=== PATIENT | male | born 1950 | race Caucasian/White ===

== ENCOUNTER → 2017-03-09 | Outpatient (CLI) | payer MEDICARE, OTHER ==
[2017-03-09 13:54] LABS: ALT 41 U/L (21-72); AST 22 U/L (17-59); Albumin 4.2 g/dL (3.5-5.0); Alkaline Phosphatase 61 U/L (38-126); Anion Gap 9 mmol/L; Blood Urea Nitrogen 17 mg/dL (9-20); Calcium 9.9 mg/dL (8.4-10.2); Carbon Dioxide 28 mmol/L (22-30); Chloride 105 mmol/L (98-107); Glucose 83 mg/dL (74-99); Potassium 4.4 mmol/L (3.5-5.1); Sodium 142 mmol/L (137-145); Total Bilirubin 0.4 mg/dL (0.2-1.3); Total Protein 6.9 g/dL (6.3-8.2)
[2017-03-09 13:56] LABS: Basophils # (A) 0.1 k/uL (0-0.2); Basophils % (A) 1 %; Eosinophils # (A) 0.3 k/uL (0-0.7); Eosinophils % (A) 4 %; HGB 16.1 gm/dL (13.0-17.5); Lymphocytes % (A) 28 %; MCH 30.4 pg (25.0-35.0); MCHC 34.3 g/dL (31.0-37.0); MCV 88.7 fL (80.0-100.0); Mean Platelet Volume 6.9; Monocytes # (A) 0.5 k/uL (0-1.0); Monocytes % (A) 7 %; Neutrophils % (A) 58 %; Platelet Count 174 k/uL (150-450); RDW 12.9 % (11.5-15.5); WBC 6.9 k/uL (3.8-10.6)
[2017-03-09 14:31] LABS: Prostate Specific Antigen <0.10 ng/mL (0.00-4.00)
== END | disposition home or self-care (01) ==
LOC: LABWHC1 12:24
PROVIDERS: ATTEND Internal Medicine
DX: C61 Malignant neoplasm of prostate (principal)
CPT/HCPCS: 36415; 80053; 84153; 84403; 85025

== ENCOUNTER → 2017-09-13 | Outpatient (CLI) | payer MEDICARE, OTHER ==
[2017-09-13 12:21] LABS: ALT 29 U/L (21-72); AST 20 U/L (17-59); Albumin 4.2 g/dL (3.5-5.0); Alkaline Phosphatase 53 U/L (38-126); Anion Gap 7 mmol/L; Blood Urea Nitrogen 20 mg/dL (9-20); Calcium 9.6 mg/dL (8.4-10.2); Carbon Dioxide 24 mmol/L (22-30); Chloride 109 mmol/L (98-107); Glucose 102 mg/dL (74-99); Sodium 140 mmol/L (137-145); Total Bilirubin 0.7 mg/dL (0.2-1.3); Total Protein 6.7 g/dL (6.3-8.2)
[2017-09-13 12:29] LABS: Basophils % (A) 1 %; Eosinophils # (A) 0.3 k/uL (0-0.7); Eosinophils % (A) 3 %; HCT 45.2 % (39.0-53.0); HGB 15.5 gm/dL (13.0-17.5); Lymphocytes # (A) 1.9 k/uL (1.0-4.8); Lymphocytes % (A) 26 %; MCH 30.2 pg (25.0-35.0); MCHC 34.3 g/dL (31.0-37.0); Mean Platelet Volume 6.8; Monocytes # (A) 0.4 k/uL (0-1.0); Monocytes % (A) 6 %; Neutrophils # (A) 4.7 k/uL (1.3-7.7); Neutrophils % (A) 63 %; Platelet Count 154 k/uL (150-450); RBC 5.14 m/uL (4.30-5.90); RDW 13.9 % (11.5-15.5); WBC 7.4 k/uL (3.8-10.6)
[2017-09-13 12:50] LABS: Prostate Specific Antigen <0.10 ng/mL (0.00-4.00)
== END | disposition home or self-care (01) ==
LOC: LABWHC1 11:30
PROVIDERS: ATTEND Internal Medicine
DX: C61 Malignant neoplasm of prostate (principal)
CPT/HCPCS: 36415; 80053; 84153; 85025

== ENCOUNTER → 2017-12-14 | Outpatient (CLI) | payer MEDICARE, OTHER ==
[2017-12-14 14:25] LABS: Basophils % (A) 0 %; Eosinophils # (A) 0.1 k/uL (0-0.7); Eosinophils % (A) 1 %; HCT 44.7 % (39.0-53.0); HGB 15.2 gm/dL (13.0-17.5); Lymphocytes % (A) 18 %; MCH 30.1 pg (25.0-35.0); MCHC 33.9 g/dL (31.0-37.0); MCV 88.7 fL (80.0-100.0); Mean Platelet Volume 7.3; Monocytes # (A) 0.6 k/uL (0-1.0); Monocytes % (A) 6 %; Neutrophils % (A) 73 %; Platelet Count 172 k/uL (150-450); RBC 5.04 m/uL (4.30-5.90); RDW 13.3 % (11.5-15.5); WBC 10.9 k/uL (3.8-10.6)
[2017-12-14 19:05] LABS: Albumin 4.5 g/dL (3.80-4.90); Albumin/Globulin Ratio 2.5 (1.20-2.10); Anion Gap 5.1 mmol/L (4.00-12.00); Calcium 9.4 mg/dL (8.7-10.3); Carbon Dioxide 26.9 mmol/L (21.6-31.8); Globulin 1.8 g/dL (2.1-3.7); Potassium 3.9 mmol/L (3.5-5.5); Total Bilirubin 0.8 mg/dL (0.2-1.2); Total Protein 6.3 g/dL (6.2-8.2)
[2017-12-14 19:15] LABS: Prostate Specific Antigen 0.1 ng/mL (0.0-4.5)
== END | disposition home or self-care (01) ==
LOC: LABWHC1 14:05
PROVIDERS: ATTEND Internal Medicine
DX: C61 Malignant neoplasm of prostate (principal)
CPT/HCPCS: 36415; 80053; 84153; 85025

== ENCOUNTER → 2018-03-29 | Outpatient (CLI) | payer MEDICARE, OTHER ==
[2018-03-29 13:37] LABS: Basophils % (A) 0 %; Eosinophils # (A) 0.2 k/uL (0-0.7); Eosinophils % (A) 2 %; HCT 47.6 % (39.0-53.0); HGB 15.8 gm/dL (13.0-17.5); Lymphocytes % (A) 19 %; MCH 29.8 pg (25.0-35.0); MCHC 33.2 g/dL (31.0-37.0); MCV 89.9 fL (80.0-100.0); Mean Platelet Volume 6.7; Monocytes # (A) 0.5 k/uL (0-1.0); Monocytes % (A) 5 %; Neutrophils # (A) 7.4 k/uL (1.3-7.7); Neutrophils % (A) 72 %; Platelet Count 199 k/uL (150-450); RDW 13.3 % (11.5-15.5); WBC 10.2 k/uL (3.8-10.6)
[2018-03-29 19:17] LABS: Albumin 4.5 g/dL (3.80-4.90); Albumin/Globulin Ratio 2.25 (1.60-3.17); Anion Gap 7.9 mmol/L (4.00-12.00); Carbon Dioxide 30.1 mmol/L (21.6-31.8); Potassium 4.3 mmol/L (3.5-5.5); Total Bilirubin 0.7 mg/dL (0.3-1.2); Total Protein 6.5 g/dL (6.2-8.2)
== END | disposition home or self-care (01) ==
LOC: LABWHC1 11:50
PROVIDERS: ATTEND Internal Medicine
DX: C61 Malignant neoplasm of prostate (principal)
CPT/HCPCS: 36415; 80053; 84153; 85025

== ENCOUNTER → 2018-06-25 | Outpatient (CLI) | payer MEDICARE, OTHER ==
[2018-06-25 10:46] LABS: Basophils % (A) 0 %; Eosinophils # (A) 0.3 k/uL (0-0.7); Eosinophils % (A) 3 %; HCT 46.8 % (39.0-53.0); HGB 15.7 gm/dL (13.0-17.5); Lymphocytes # (A) 2.5 k/uL (1.0-4.8); Lymphocytes % (A) 30 %; MCH 29.5 pg (25.0-35.0); MCHC 33.4 g/dL (31.0-37.0); MCV 88.4 fL (80.0-100.0); Mean Platelet Volume 7.8; Monocytes # (A) 0.6 k/uL (0-1.0); Monocytes % (A) 7 %; Neutrophils # (A) 4.8 k/uL (1.3-7.7); Neutrophils % (A) 57 %; Platelet Count 182 k/uL (150-450); RDW 13.9 % (11.5-15.5); WBC 8.4 k/uL (3.8-10.6)
[2018-06-25 16:55] LABS: Albumin 4.4 g/dL (3.80-4.90); Albumin/Globulin Ratio 2.44 (1.60-3.17); Anion Gap 6.1 mmol/L (4.00-12.00); Calcium 9.3 mg/dL (8.7-10.3); Carbon Dioxide 25.9 mmol/L (21.6-31.8); Globulin 1.8 g/dL (1.6-3.3); Potassium 4.2 mmol/L (3.5-5.5); Total Bilirubin 0.7 mg/dL (0.2-1.2); Total Protein 6.2 g/dL (6.2-8.2)
== END | disposition home or self-care (01) ==
LOC: LABWHC1 10:21
PROVIDERS: ATTEND Internal Medicine
DX: C61 Malignant neoplasm of prostate (principal)
CPT/HCPCS: 36415; 80053; 84153; 85025

== ENCOUNTER → 2018-10-02 | Outpatient (CLI) | payer MEDICARE, OTHER | END | disposition home or self-care (01) | LOC: LABWHC1 12:17 | PROVIDERS: ATTEND Internal Medicine | DX: C61 Malignant neoplasm of prostate (principal) | CPT/HCPCS: 36415; 84153 ==

== ENCOUNTER → 2018-12-25 | Outpatient (CLI) | payer MEDICARE, OTHER ==
[2018-12-25 14:06] LABS: Basophils % (A) 1 %; Eosinophils # (A) 0.2 k/uL (0-0.7); Eosinophils % (A) 2 %; HCT 47.2 % (39.0-53.0); HGB 16.1 gm/dL (13.0-17.5); Lymphocytes # (A) 2.1 k/uL (1.0-4.8); Lymphocytes % (A) 26 %; MCHC 34.1 g/dL (31.0-37.0); Monocytes # (A) 0.5 k/uL (0-1.0); Monocytes % (A) 6 %; Neutrophils # (A) 5.2 k/uL (1.3-7.7); Neutrophils % (A) 63 %; Platelet Count 172 k/uL (150-450); RBC 5.36 m/uL (4.30-5.90); RDW 12.8 % (11.5-15.5); WBC 8.1 k/uL (3.8-10.6)
[2018-12-25 20:01] LABS: Albumin 4.6 g/dL (3.80-4.90); Albumin/Globulin Ratio 2.56 (1.60-3.17); Anion Gap 6.6 mmol/L (4.00-12.00); Calcium 9.2 mg/dL (8.7-10.3); Carbon Dioxide 26.4 mmol/L (21.6-31.8); Globulin 1.8 g/dL (1.6-3.3); Potassium 4.3 mmol/L (3.5-5.5); Total Bilirubin 0.6 mg/dL (0.3-1.2); Total Protein 6.4 g/dL (6.2-8.2)
== END | disposition home or self-care (01) ==
LOC: LABWHC1 13:29
PROVIDERS: ATTEND Internal Medicine
DX: C61 Malignant neoplasm of prostate (principal)
CPT/HCPCS: 36415; 80053; 84153; 85025

== ENCOUNTER → 2019-03-29 | Outpatient (CLI) | payer MEDICARE, OTHER | END | disposition home or self-care (01) | LOC: LABWHC1 14:36 | PROVIDERS: ATTEND Internal Medicine | DX: C61 Malignant neoplasm of prostate (principal) | CPT/HCPCS: 36415; 84153 ==

== ENCOUNTER → 2019-07-01 | Outpatient (CLI) | payer MEDICARE, OTHER | END | disposition home or self-care (01) | LOC: LABWHC1 10:59 | DX: C61 Malignant neoplasm of prostate (principal) | CPT/HCPCS: 36415; 84153 ==

== ENCOUNTER → 2019-12-05 | Outpatient (CLI) | payer MEDICARE, OTHER ==
[2019-12-05 15:37] LABS: Basophils % (A) 0 %; Eosinophils # (A) 0.2 k/uL (0-0.7); Eosinophils % (A) 2 %; HCT 45.9 % (39.0-53.0); HGB 15.1 gm/dL (13.0-17.5); Lymphocytes # (A) 2.2 k/uL (1.0-4.8); Lymphocytes % (A) 21 %; MCH 29.9 pg (25.0-35.0); MCHC 32.8 g/dL (31.0-37.0); MCV 91.3 fL (80.0-100.0); Mean Platelet Volume 7.7; Monocytes # (A) 0.7 k/uL (0-1.0); Monocytes % (A) 7 %; Neutrophils # (A) 7.4 k/uL (1.3-7.7); Neutrophils % (A) 69 %; Platelet Count 177 k/uL (150-450); RBC 5.03 m/uL (4.30-5.90); RDW 13.4 % (11.5-15.5); WBC 10.7 k/uL (3.8-10.6)
[2019-12-05 21:34] LABS: African American GFR (CKD) 99.2 (60.0-200.0); Albumin 4.3 g/dL (3.80-4.90); Albumin/Globulin Ratio 2.05 (1.60-3.17); Anion Gap 9.1 mmol/L (4.00-12.00); BUN/Creat Ratio 24.44 Ratio (12.00-20.00); Calcium 9.9 mg/dL (8.7-10.3); Carbon Dioxide 26.9 mmol/L (21.6-31.8); Globulin 2.1 g/dL (1.6-3.3); Non-African American GFR(CKD) 85.6 (60.0-200.0); Potassium 4.3 mmol/L (3.5-5.5); Total Bilirubin 0.7 mg/dL (0.2-1.2); Total Protein 6.4 g/dL (6.2-8.2)
[2019-12-05 21:56] LABS: Prostate Specific Antigen 0.2 ng/mL (0.0-6.5)
== END | disposition home or self-care (01) ==
LOC: LABWHC1 13:28
PROVIDERS: ATTEND Internal Medicine
DX: C61 Malignant neoplasm of prostate (principal)
CPT/HCPCS: 36415; 80053; 84153; 84403; 85025

== ENCOUNTER → 2020-02-24 | Outpatient (CLI) | payer MEDICARE, OTHER ==
[2020-02-24 13:32] LABS: Basophils % (A) 1 %; Eosinophils # (A) 0.2 k/uL (0-0.7); Eosinophils % (A) 3 %; HCT 44.4 % (39.0-53.0); Lymphocytes # (A) 1.9 k/uL (1.0-4.8); Lymphocytes % (A) 23 %; MCH 29.9 pg (25.0-35.0); MCHC 33.7 g/dL (31.0-37.0); MCV 88.8 fL (80.0-100.0); Mean Platelet Volume 7.4; Monocytes # (A) 0.6 k/uL (0-1.0); Monocytes % (A) 6 %; Neutrophils # (A) 5.6 k/uL (1.3-7.7); Neutrophils % (A) 66 %; Platelet Count 175 k/uL (150-450); RDW 12.7 % (11.5-15.5); WBC 8.5 k/uL (3.8-10.6)
[2020-02-24 20:01] LABS: African American GFR (CKD) 99.2 (60.0-200.0); Albumin 4.6 g/dL (3.80-4.90); Albumin/Globulin Ratio 2.3 (1.60-3.17); Anion Gap 7.6 mmol/L (4.00-12.00); BUN/Creat Ratio 23.33 Ratio (12.00-20.00); Calcium 9.5 mg/dL (8.7-10.3); Carbon Dioxide 26.4 mmol/L (21.6-31.8); Non-African American GFR(CKD) 85.6 (60.0-200.0); Potassium 3.9 mmol/L (3.5-5.5); Total Bilirubin 0.6 mg/dL (0.3-1.2); Total Protein 6.6 g/dL (6.2-8.2)
[2020-02-24 20:10] LABS: Prostate Specific Antigen 0.3 ng/mL (0.0-6.5)
== END | disposition home or self-care (01) ==
LOC: LABWHC1 11:46
PROVIDERS: ATTEND Internal Medicine
DX: C61 Malignant neoplasm of prostate (principal)
CPT/HCPCS: 36415; 80053; 84153; 84403; 85025

== ENCOUNTER → 2020-09-02 | Outpatient (CLI) | payer MEDICARE, OTHER ==
[2020-09-02 20:58] LABS: Prostate Specific Antigen 0.3 ng/mL (0.0-6.5)
== END | disposition home or self-care (01) ==
LOC: LABWHC1 12:37
PROVIDERS: ATTEND Physician Assistant
DX: R79.9 Abnormal finding of blood chemistry, unspecified (principal)
CPT/HCPCS: 36415; 84153; 84403

== ENCOUNTER → 2020-12-02 | Outpatient (CLI) | payer MEDICARE, OTHER | END | disposition home or self-care (01) | LOC: LABWHC1 12:02 | PROVIDERS: ATTEND Physician Assistant | DX: C61 Malignant neoplasm of prostate (principal) | CPT/HCPCS: 36415; 84153; 84403 ==

== ENCOUNTER → 2021-06-25 | Outpatient (CLI) | payer MEDICARE, OTHER ==
[2021-06-25 22:26] LABS: Basophils # (A) 0.04 X 10*3/uL (0.00-0.10); Basophils % (A) 0.4 %; Eosinophils # (A) 0.25 X 10*3/uL (0.04-0.35); Eosinophils % (A) 2.8 %; HCT 51.3 % (39.6-50.0); HGB 16.8 g/dL (13.0-17.0); Immature Grans, Automated 0.3 %; Lymphocytes # (A) 2.17 X 10*3/uL (0.90-5.00); Lymphocytes % (A) 24.1 %; MCH 29.6 pg (27.0-32.0); MCHC 32.7 g/dL (32.0-37.0); MCV 90.3 fL (80.0-97.0); Monocytes # (A) 0.74 X 10*3/uL (0.20-1.00); Monocytes % (A) 8.2 %; NRBC Per 100 WBC 0 /100 WBCS (0.0-0.0); Neutrophils # (A) 5.79 X 10*3/uL (1.80-7.70); Neutrophils % (A) 64.2 %; Platelet Count 177 X 10*3/uL (140-440); RBC 5.68 X 10*6/uL (4.40-5.60); RDW 13.3 % (11.5-14.5); WBC 9.02 X 10*3/uL (4.50-10.00)
[2021-06-25 22:46] LABS: Albumin 4.6 g/dL (3.8-4.9); Albumin/Globulin Ratio 1.64 (1.60-3.17); Anion Gap 11.3 mmol/L (10.00-18.00); BUN/Creat Ratio 22.06 Ratio (12.00-20.00); Blood Urea Nitrogen 23.6 mg/dL (9.0-27.0); Calcium 10.1 mg/dL (8.7-10.3); Carbon Dioxide 27.3 mmol/L (20.0-27.5); Globulin 2.8 g/dL (1.6-3.3); Potassium 4.5 mmol/L (3.5-5.5); Prostate Specific Antigen 6.7 ng/mL (0.00-6.50); Total Bilirubin 0.6 mg/dL (0.30-1.20); Total Protein 7.4 g/dL (6.2-8.2)
== END | disposition home or self-care (01) ==
LOC: LABWHC1 15:29
PROVIDERS: ATTEND Internal Medicine
DX: Z00.00 Encounter for general adult medical examination without abnormal findings (principal)
CPT/HCPCS: 36415; 80053; 84153; 84403; 85025

== ENCOUNTER 2022-07-26 14:16 | Emergency (ER) | payer MEDICARE, OTHER ==
[2022-07-26] MEDS ORDERED: SODIUM CHLORIDE 0.9% 1,000 ML IV ONE (15:06)
[2022-07-26] MEDS ORDERED: TAMSULOSIN 0.4 MG CAP.ER.24H PO STA (15:06)
[2022-07-26 15:47] LABS: Basophils % (A) 0 %; Eosinophils # (A) 0.1 k/uL (0-0.7); Eosinophils % (A) 1 %; HCT 41.7 % (39.0-53.0); HGB 14.5 gm/dL (13.0-17.5); Lymphocytes % (A) 22 %; MCH 29.9 pg (25.0-35.0); MCHC 34.7 g/dL (31.0-37.0); MCV 86.2 fL (80.0-100.0); Mean Platelet Volume 7.7; Monocytes # (A) 0.6 k/uL (0-1.0); Monocytes % (A) 7 %; Neutrophils % (A) 67 %; Platelet Count 163 k/uL (150-450); RBC 4.83 m/uL (4.30-5.90); RDW 13.5 % (11.5-15.5); WBC 8.9 k/uL (3.8-10.6)
[2022-07-26 15:49] LABS: Appearance,Urine Clear (Clear); Bilirubin,Urine Negative (Negative); Blood,Urine Large (Negative); Color,Urine Yellow; Glucose,Urine (UA) Negative (Negative); Ketones,Urine Negative (Negative); Leukocyte Esterase,Urine Trace (Negative); Nitrite,Urine Negative (Negative); Protein,Urine Trace (Negative); RBC,Urine 2 /hpf (0-5); Specific Gravity,Urine 1.019 (1.001-1.035); Urobilinogen,Urine <2.0 mg/dL (<2.0); WBC,Urine <1 /hpf (0-5)
--- NOTE | 2022-07-26 16:06 | CT ---
EXAMINATION TYPE: CT abdomen pelvis wo con DATE OF EXAM: 07/26/2022 COMPARISON: None HISTORY: c/o urinary retention CT DLP: 1148.4 mGycm Examination of the solid and hollow viscera is limited given the lack of contrast. FINDINGS: LUNG BASES: No evidence for nodule. No evidence for infiltrate. LIVER/GB: The gallbladder is unremarkable. No space-occupying hepatic lesion. PANCREAS: No pancreatic mass identified. No inflammatory process seen. SPLEEN: No evidence for splenomegaly. No intrasplenic lesions seen. ADRENALS: No adrenal nodules identified. No evidence for thickening. KIDNEYS: No evidence for renal mass. 3 mm calculus resides within the urinary bladder compatible with recently passed calculus. There is mild residual right-sided hydronephrosis. 2 mm nonobstructing veronica culus midpole right kidney. 1 mm nonobstructing calculus upper pole left kidney. 2 mm nonobstructing calculus mid pole left kidney. BOWEL: Appendix has a normal appearance. No evidence of bowel obstruction. No inflammatory process. Lymph nodes: No evidence for adenopathy greater than 1 cm. Abdominal aorta: Atheromatous changes seen. No evidence for aneurysm. Genital organs: Changes of previous prostatectomy. Other: No significant abnormality. IMPRESSION: 3 mm calculus resides within the urinary bladder compatible with recently passed calculus. There is m ild residual right-sided hydronephrosis.
[2022-07-26 16:15] LABS: ALT 20 U/L (4-49); AST 24 U/L (17-59); African American GFR (CKD) >90 (>60 ml/min/1.73 sqM); Albumin 4.3 g/dL (3.5-5.0); Alkaline Phosphatase 68 U/L (38-126); Anion Gap 12 mmol/L; Blood Urea Nitrogen 35 mg/dL (9-20); Calcium 9.9 mg/dL (8.4-10.2); Carbon Dioxide 22 mmol/L (22-30); Chloride 109 mmol/L (98-107); Glucose 89 mg/dL (74-99); Non-African American GFR(CKD) 82 (>60 ml/min/1.73 sqM); Potassium 4.2 mmol/L (3.5-5.1); Sodium 143 mmol/L (137-145); Total Bilirubin 0.9 mg/dL (0.2-1.3); Total Protein 7.1 g/dL (6.3-8.2)
--- NOTE | 2022-07-26 17:04 | ED ---
General Adult HPI - General Chief complaint: Urogenital Stated complaint: urinary retention Time Seen by Provider: 07/26/22 14:47 Source: patient, RN notes reviewed Mode of arrival: ambulatory Limitations: no limitations - History of Present Illness Initial comments: 71-year-old male with history of enlarged prostate presents to the emergency department with a chief complaint of urinary retention. Patient reports difficulty urinating that started approximately 2 days ago. He reports his last void was last night. He reports that he is still able to have a small double. He denies any fevers, chills pain, just nausea, vomiting. He does report accompanying right flank pain that radiates to the right abdomen. He does report he used to s self catheterize.. - Related Data Previous Rx's Medication Instructions Recorded Tamsulosin [Flomax] 0.4 mg PO DAILY #14 cap 07/26/22 Allergies Allergy/AdvReac Type Severity Reaction Status Date / Time No Known Allergies Allergy Verified 07/26/22 14:40 Review of Systems ROS Statement: Those systems with pertinent positive or pertinent negative responses have been documented in the HPI. ROS Other: All systems not noted in ROS Statement are negative. Past Medical History Past Medical History: Prostate Disorder History of Any Multi-Drug Resistant Organisms: None Reported Past Surgical History: Hernia Repair, Prostate Surgery Past Psychological History: No Psychological Hx Reported Smoking Status: Current some day smoker Past Alcohol Use History: None Reported Past Drug Use History: None Reported General Exam - General Exam Comments Initial Comments: General: Alert, in no acute distress Head: atraumatic normocephalic. Eyes PERRL, EOMI intact, mucous membranes moist Respiratory: Lungs clear to auscultation bilaterally Cardiovascular: heart rate regular rate and rhythm Abdominal: Soft without guarding or rebound Extremities: Normal inspection with full range of motion and normal capillary refill Neuroogic: alert and oriented 3, CN II-XII intact, able to ambulate with steady gait Skin: warm dry and intact with normal color Limitations: no limitations Course Vital Signs 07/26/22 07/26/22 14:37 17:18 Temperature 98.4 F 97.9 F Pulse Rate 80 76 Respiratory 20 16 Rate Blood Pressure 102/72 136/76 O2 Sat by Pulse 98 99 Oximetry Medical Decision Making - Medical Decision Making Was pt. sent in by a medical professional or institution (, PA, DEVICE SALES CONSULTANT, urgent care, hospital, or penitentiary...) When possible be specific @ -[No] Did you speak to anyone other than the patient for history (EMS, parent, family, police, friend...)? What history was obtained from this source @ -[No] Did you review nursing and triage notes (agree or disagree)? Why? @ -[I reviewed and agree with nursing and triage notes] Were old charts reviewed (outside hosp., previous admission, EMS record, old EKG, old radiological studies, urgent care reports/EKG's, penitentiary records)? Report findings @ -[No old charts were reviewed] Differential Diagnosis (chest pain, altered mental status, abdominal pain women, abdominal pain men, vaginal bleeding, weakness, fever, dyspnea, syncope, headache, dizziness, GI bleed, back pain, seizure, CVA, palpatations, mental health, musculoskeletal)? @ -[not applicable] EKG interpreted by me (3pts min.). @ -[As above] X-rays interpreted by me (1pt min.). @ -[None done] CT interpreted by me (1pt min.). @ -negative for any evidence of obstructing nephrolithiasis. There is mild right hydronephrosis with suspected recent passing of her nephrolithiasis. U/S interpreted by me (1pt. min.). @ -[None done] What testing was considered but not performed or refused? (CT, X-rays, U/S, labs)? Why? @ -[None] What meds were considered but not given or refused? Why? @ -[None] Did you discuss the management of the patient with other professionals (gurpreet gomez i.eCarlee Sy, PA, DEVICE SALES CONSULTANT, lab, RT, psych nurse, family welfare social work professor, animal hospital office supervisor, teacher, corporate trust officer, welfare case worker)? Give summary @ -[No] Was smoking cessation discussed for >3mins.? @ -[No] Was critical care preformed (if so, how long)? @ -[No] Were there social determinants of health that impacted care today? How? (Homelessness, low income, unemployed, alcoholism, drug addiction, transpo rtation, low edu. Level, literacy, decrease access to med. care, detention, rehab)? @ -[No] Was there de-escalation of care discussed even if they declined (Discuss DNR or withdrawal of care, Hospice)? DNR status @ -[No] What co-morbidities impacted this encounter? (DM, HTN, Smoking, COPD, CAD, Cancer, CVA, ARF, Chemo, Hep., AIDS, mental health diagnosis, sleep apnea, morbid obesity)? @ -[None] Was patient admitted / discharged? Hospital course, mention meds given and route, prescriptions, significant lab abnormalities, going to OR and other pertinent info. @ --Discharge. This is a 71-year-old male who presents the emergency department with urinary problem. Patient had a thorough history and physical exam performed on the ED. Heart rate regular rate and rhythm, lung laterally, abdomen soft and nontender. Patient had lab work and imaging performed which were essentially unremarkable.patient had a bladder scan which showed personally 200 mL of urine. Patient had lab work and imaging performed. He was given 1 L of IV fluids with symptomatic relief.he should was given a dose of Flomax on the ED. He was given a prescription for Flomax. I discussed the results in detail with the patient verbalized understanding and all questions were addr essed. Return precautions were discussed at length. Patient discharged in stable condition. Case discussed with Dr. Silas GRAVES who agrees with plan of care Undiagnosed new problem with uncertain prognosis? @ -[No] Drug Therapy requiring intensive monitoring for toxicity (Heparin, Nitro, Insulin, Cardizem)? @ -[No] Were any procedures done? @ -[No] Diagnosis/symptom? @ -Urinary Problem Acute, or Chronic, or Acute on Chronic? @ -Acute Uncomplicated (without systemic symptoms) or Complicated (systemic symptoms)? @ -Uncomplicated Side effects of treatment? @ -[No] Exacerbation, Progression, or Severe Exacerbation? @ -[No] Poses a threat to life or bodily function? How? (Chest pain, [place], [place], pneumonia, PE, COPD, DKA, ARF, appy, cholecystitis, CVA, Diverticulitis, Homicidal, Suicidal, threat to staff... and all critical care pts) @ -Low likelihood - Lab Data Result diagrams: 07/26/22 15:19 07/26/22 15:19 Lab Results 07/26/22 07/26/22 07/26/22 Range/Units 15:01 15:19 15:19 WBC 8.9 (3.8-10.6) k/uL RBC 4.83 (4.30-5.90) m/uL Hgb 14.5 (13.0-17.5) gm/dL Hct 41.7 (39.0-53.0) % MCV 86.2 (80.0-100.0) fL MCH 29.9 (25.0-35.0) pg MCHC 34.7 (31.0-37.0) g/dL RDW 13.5 (11.5-15.5) % Plt Count 163 (150-450) k/uL MPV 7.7 Neutrophils % 67 % Lymphocytes % 22 % Monocytes % 7 % Eosinophils % 1 % Basophils % 0 % Neutrophils # 6.0 (1.3-7.7) k/uL Lymphocytes # 2.0 (1.0-4.8) k/uL Monocytes # 0.6 (0-1.0) k/uL Eosinophils # 0.1 (0-0.7) k/uL Basophils # 0.0 (0-0.2) k/uL Sodium 143 (137-145) mmol/L Potassium 4.2 (3.5-5.1) mmol/L Chloride 109 H (98-107) mmol/L Carbon Dioxide 22 (22-30) mmol/L Anion Gap 12 mmol/L BUN 35 H (9-20) mg/dL Creatinine 0.92 (0.66-1.25) mg/dL Est GFR (CKD-EPI)AfAm >90 (>60 ml/min/1.73 sqM) Est GFR (CKD-EPI)NonAf 82 (>60 ml/min/1.73 sqM) Glucose 89 (74-99) mg/dL Calcium 9.9 (8.4-10.2) mg/dL Total Bilirubin 0.9 (0.2-1.3) mg/dL AST 24 (17-59) U/L ALT 20 (4-49) U/L Alkaline Phosphatase 68 (38-126) U/L Total Protein 7.1 (6.3-8.2) g/dL Albumin 4.3 (3.5-5.0) g/dL Urine Color Yellow Urine Appearance Clear (Clear) Urine pH 5.0 (5.0-8.0) Ur Specific [place] 1.019 (1.001-1.035) Urine Protein Trace H (Negative) Urine Glucose (UA) Negative (Negative) Urine Ketones Negative (Negative) Urine Blood Large H (Negative) Urine Nitrite Negative (Negative) Urine Bilirubin Negative (Negative) Urine Urobilinogen <2.0 (<2.0) mg/dL Ur Leukocyte Esterase Trace H (Negative) Urine RBC 2 (0-5) /hpf Urine WBC <1 (0-5) /hpf Disposition Clinical Impression: Urinary retention Disposition: HOME SELF-CARE Condition: Stable Additional Instructions: please return to the nearest emergency department symptoms worsen or persist Prescriptions: Tamsulosin [Flomax] 0.4 mg PO DAILY #14 cap Is patient prescribed a controlled substance at d/c from ED?: No Referrals: Nonstaff,Physician [REFERRING] - 1-2 days Mars Joshi MD [STAFF PHYSICIAN] - 1-2 days Time of Disposition: 17:03
[2022-07-26 17:21] VITALS: BP 136/76; PULSE 76; RESP 16; TEMP 97.9
== END 2022-07-26 18:00 | disposition home or self-care (01) ==
LOC: EC 14:16
DX: R33.8 Other retention of urine (principal); F17.200 Nicotine dependence, unspecified, uncomplicated
CPT/HCPCS: 36415; 51798; 74176; 80053; 81001; 84153; 84403; 85025; 99284